=== PATIENT | female | born 1975 | race Caucasian/White ===

== ENCOUNTER 2017-06-07 11:51 | Emergency (ER) | payer MEDICAID ==
[~2017-06-07] VITALS: Ht 152.4 cm; Wt 65.3 kg
[2017-06-07 11:57] VITALS: Ht 152.4 cm; Wt 65.3 kg
[2017-06-07 13:02] VITALS: BP 122/78
== END 2017-06-07 13:02 | disposition home or self-care (01) ==
LOC: ED 11:51
DX: J06.9 Acute upper respiratory infection, unspecified (principal)
CPT/HCPCS: J1885